=== PATIENT | female | born 1980 | race Caucasian/White ===

== ENCOUNTER 2022-02-21 13:56 | Emergency (ER) | payer OTHER, SELFPAY ==
[2022-02-21 14:02] VITALS: BP 125/80; PULSE 86; RESP 16; TEMP 36.7; O2SAT 97
--- NOTE | 2022-02-21 14:27 | ED.URI ---
HPI - URI/Sore Throat General Chief Complaint: Upper Respiratory Infection Stated Complaint: Sore Throat,Sinus Time Seen by Provider: 02/21/22 14:05 Source: patient Mode of arrival: ambulatory Limitations: no limitations History of Present Illness HPI Narrative: Ms. Aggarwal is a 41-year-old female patient presenting to the clinic today with complaints of fatigue, sore throat, sweating, and congestion x2 days. She reports that her work required her to be evaluated to be able to return. States that the sore throat has gradually gotten worse since this morning. She had taken a COVID test last week and it was negative. No known COVID exposure. She thinks she may have strep. Has congestion with drainage going in the back of her throat. MD elicited complaint: sore throat and nasal congestion Review of Systems Review of Systems: Pertinent positives per HPI. Patient denies any fever, chills, rash, headache, visual changes, dizziness, cough, shortness of breath, chest pain, palpitations, nausea, vomiting, diarrhea, constipation, abdominal pain, or any urinary issues. PMFSH Comments At the time of my signature, I reviewed and agree with the nursing past medical, surgical, social, and family history. There is no relevant family history pertinent to the patient complaint. Exam Narrative: General: Well-developed, well nourished, in no apparent distress Head: Normocephalic, atraumatic Eyes: Pupils equally round and reactive to light bilaterally, EOM intact, sclera and conjunctive clear, no discharge, lids normal Ears: TMs intact and opaque with mild bulging, ear canals clear, no drainage, grossly hearing normal. Nose: Nares patent, clear nasal discharge, no inflammation, no sinus tenderness. Mouth: Oral pharynx without lesions or masses, good dentition, MMM. Oropharynx mildly red postnasal drip Neck: Supple, trachea midline, no enlargement of anterior or posterior cervical nodes, no thyroid masses or goiter palpable. Cardio: Regular rate and rhythm, s1 and s2 normal, no murmur appreciated. Resp: Clear to auscultation bilaterally, no rhonchi, rales, wheezing or rubs Course Course Emergency Course: Portions of this record may have been created with voice recognition software. Level of Care: Express Care Visit Vital Signs Vital signs: Vital Signs Temperature 36.7 C 02/21/22 14:02 Pulse Rate 86 02/21/22 14:02 Respiratory Rate 16 02/21/22 14:02 Blood Pressure 125/80 02/21/22 14:02 Pulse Oximetry 97 02/21/22 14:02 Oxygen Delivery Room Air 02/21/22 14:02 Temperature 36.7 C 02/21/22 14:02 Pulse Rate 86 02/21/22 14:02 Respiratory Rate 16 02/21/22 14:02 Blood Pressure 125/80 02/21/22 14:02 Pulse Oximetry 97 02/21/22 14:02 Oxygen Delivery Room Air 02/21/22 14:02 Vital signs reviewed MDM - URI/Sore Throat MDM Narrative Medical decision making narrative: At the time of visit patient is resting comfortably on the exam table. COVID test and strep testing was negative in the clinic. We will send for culture. I suspect patient has viral pharyngitis with postnasal drip/URI along with bilateral eustachian tube dysfunction. Supportive measures were discussed with the patient she voiced understanding of discharge instructions and agrees to the treatment plan Differential Diagnosis Differential diagnosis: Likely upper respiratory infection, sinusitis, viral infection, bronchitis, influenza and pharyngitis Discharge Plan Discharge Clinical Impression: Upper respiratory infection, Pharyngitis, Post-nasal drip, Eustachian tube dysfunction Patient Disposition: Home, Self-Care Condition: Stable Instructions: Antibiotic Form, Pharyngitis (ED), Cold Symptoms (ED), Postnasal Drip (DC) Additional Instructions: COVID and strep testing negative in the clinic. We will send strep for culture Take prescription medications only as prescribed-prednisone as prescribed Increase fluids and stay wel
== END 2022-02-21 14:42 | disposition home or self-care (01) ==
PROVIDERS: Emergency Provider Nurse Practitioner Family; PCP Nurse Practitioner Family
DX: J06.9 Acute upper respiratory infection, unspecified (principal); J02.9 Acute pharyngitis, unspecified; R09.82 Postnasal drip; H69.90 Unspecified Eustachian tube disorder, unspecified ear; Z20.822 Contact with and (suspected) exposure to COVID-19; E78.00 Pure hypercholesterolemia, unspecified; I10 Essential (primary) hypertension; K21.9 Gastro-esophageal reflux disease without esophagitis; E11.9 Type 2 diabetes mellitus without complications; F90.9 Attention-deficit hyperactivity disorder, unspecified type; F41.9 Anxiety disorder, unspecified; F32.A Depression, unspecified
CPT/HCPCS: 87081; 87426; 87880; 99203; C9803; G0463